=== PATIENT | female | born 1965 | race Caucasian/White ===

== ENCOUNTER 2016-09-03 06:05 | Inpatient (IN) | payer OTHER, MEDICAID ==
[2016-09-01 09:23] LABS: Basophils # (auto) 0 uL; Basophils % (auto) 0.2 % (0.0-2.0); Eosinophils # (auto) 0.1 uL; Eosinophils % (auto) 1.8 % (0.0-7.0); Hemoglobin 13.7 g/dL (12.2-16.2); Lymphocytes # (auto) 1.4 uL; Lymphocytes % (auto) 17.1 % (10.0-50.0); Mean Corpuscular Hemoglobin 28.8 pg (28.0-32.0); Mean Corpuscular Hgb Conc. 32.7 g/dL (32.0-36.0); Mean Platelet Volume 7.4 fL (7.4-10.4); Monocytes # (auto) 0.4 uL; Monocytes % (auto) 5.2 % (0.0-12.0); Neutrophils # (auto) 6.1 uL; Neutrophils % (auto) 75.7 % (37.0-80.0); Platelet Count (auto) 472 10^3/uL (140-450); Red Cell Distribution Width 14.4 % (11.6-16.0)
[2016-09-01 09:31] LABS: Urine Bilirubin Negative (Negative); Urine Blood Negative /uL (Negative); Urine Color Yellow (Yellow); Urine Glucose Normal (Normal); Urine Ketone Negative (Negative); Urine Mucus FEW (None Seen); Urine Nitrite Negative (Negative); Urine RBC 1 /hpf (0 - 4); Urine Squamous Epithelial Cell FEW /hpf (<5); Urine Urobilinogen Normal (Negative); Urine pH 5.5 (5.0-8.0)
[2016-09-01 09:38] LABS: Albumin 3.3 g/dL (3.4-5.0); BUN/Creatinine Ratio 14.1; Bilirubin, Total 0.3 mg/dL (0.2-1.0); Calcium 8.9 mg/dL (8.5-10.1); Potassium 4.3 mmol/L (3.5-5.1); Total Protein 8.1 g/dL (6.4-8.2)
[2016-09-01 09:54] LABS: INR 0.94 (0.9-1.15); Partial Thromboplastin Time 27.1 sec (22.64-33.71); Prothrombin Time 10.1 sec (9.37-12.3)
[~2016-09-03] VITALS: Ht 152.4 cm; Wt 80.4 kg
[~2016-09-03 06:05] MED LIST: HYDR200T PO; IBU800T PO; LISI10TA6 PO; OMEP20CA5 PO; POTA20TA53 PO; PRE1T PO
[2016-09-03] MEDS ORDERED: NEOMYCIN-POLYM-HC 1% OTIC(EAR) SOLN 10ML ONE (06:55)
[2016-09-03] MEDS ORDERED: ceFAZolin 1GM/50ML D5W 50 ML IV ONE (07:13)
[2016-09-03] MEDS ORDERED: GLYCOPYRROLATE 0.2 MG/ML 1ML VIAL IV ONE (07:29)
[2016-09-03] MEDS ORDERED: NEOSTIGMINE 1 MG/ML INJ (10mg/10ML VIAL) IV ONE (07:29)
[2016-09-03] MEDS ORDERED: ROCURONIUM 10MG/ML 10ML VIAL IV ONE (07:30)
[2016-09-03] MEDS ORDERED: MIDAZOLAM HCL 1MG/1ML-2 ML VIAL ONE (07:30)
[2016-09-03] MEDS ORDERED: PROPOFOL 10 MG/ML 20 ML IV ONE (07:30)
[2016-09-03] MEDS ORDERED: fentaNYL CITRATE 100 MCG/2 ML VL ONE ×2 (07:30→07:31)
[2016-09-03] MEDS ORDERED: ONDANSETRON HCL 4 MG/2 ML VIAL IV ONE (09:30)
[2016-09-03] MEDS ORDERED: hydrALAZINE HCL 20 MG/ML VL IV PRN (09:30)
[2016-09-03] MEDS ORDERED: HYDROmorphone HCL 2 MG/ML VL IV PRN (09:30)
[2016-09-03] MEDS ORDERED: ePHEDrine SULFATE 50 MG/ML AMP IV PRN (09:30)
[2016-09-03] MEDS: SODIUM CHLORIDE 0.9% 1,000 ML IV SCH (10:15)
[2016-09-03] MEDS ORDERED: ONDANSETRON HCL 4 MG/2 ML VIAL IV PRN (10:15)
[2016-09-03 11:17] VITALS: BP 123/68
[2016-09-03 13:00] VITALS: BP 123/72
[2016-09-03] MEDS: ceFAZolin 1GM/50ML D5W 50 ML IV SCH ×2 (13:21→21:22)
[2016-09-03] MEDS: MORPHINE SULF INJ 2 MG/ML SYRINGE 1ML IV PRN (16:14)
[2016-09-03 17:00] VITALS: BP 139/88
[2016-09-03] MEDS: HYDROcodone-ACET 5/325MG TAB PO PRN (19:39)
[2016-09-03 20:08] VITALS: BP 139/58
[2016-09-03] MEDS: FAMOTIDINE 20 MG TAB PO SCH (21:21)
[2016-09-03 21:50] VITALS: BP 107/50
[2016-09-04] MEDS: SODIUM CHLORIDE 0.9% 1,000 ML IV SCH ×2 (03:23→12:55)
[2016-09-04] MEDS: MORPHINE SULF INJ 2 MG/ML SYRINGE 1ML IV PRN ×2 (04:34→11:46)
[2016-09-04 04:38] VITALS: BP 128/60
[2016-09-04] MEDS: ceFAZolin 1GM/50ML D5W 50 ML IV SCH (05:14)
[2016-09-04 06:39] LABS: Basophils # (auto) 0 uL; Basophils % (auto) 0.3 % (0.0-2.0); Eosinophils # (auto) 0.1 uL; Eosinophils % (auto) 2.3 % (0.0-7.0); Hematocrit 38.4 % (36.0-46.0); Hemoglobin 12.6 g/dL (12.2-16.2); Lymphocytes % (auto) 17.3 % (10.0-50.0); Mean Corpuscular Hemoglobin 28.6 pg (28.0-32.0); Mean Corpuscular Hgb Conc. 32.7 g/dL (32.0-36.0); Mean Corpuscular Volume 87.3 fL (80.0-100.0); Mean Platelet Volume 7.2 fL (7.4-10.4); Monocytes # (auto) 0.4 uL; Neutrophils # (auto) 4.2 uL; Neutrophils % (auto) 73.1 % (37.0-80.0); Platelet Count (auto) 413 10^3/uL (140-450); Red Cell Distribution Width 13.9 % (11.6-16.0); White Blood Cell 5.7 10^3/uL (4.4-10.8)
[2016-09-04] MEDS: HYDROcodone-ACET 5/325MG TAB PO PRN ×2 (06:43→13:00)
[2016-09-04 07:17] LABS: BUN/Creatinine Ratio 11.6; Calcium 8.5 mg/dL (8.5-10.1)
[2016-09-04 08:00] VITALS: BP 134/80
[2016-09-04 08:12] VITALS: BP 134/80
[2016-09-04] MEDS: FAMOTIDINE 20 MG TAB PO SCH (09:34)
[2016-09-04] MEDS ORDERED: predniSONE 1 MG TAB PO SCH (10:00)
[2016-09-04] MEDS ORDERED: HYDROXYCHLOROQUINE SULFATE 200 MG TAB PO SCH (10:00)
[2016-09-04 13:03] VITALS: BP 147/76
== END 2016-09-04 13:35 | disposition home or self-care (01) | DRG 989 ==
LOC: SUR 06:05 → CENTRAL 06:06
PROVIDERS: ADMIT Otolaryngology; ATTEND Internal Medicine
PROC: 0CB90ZZ Excision of Left Parotid Gland, Open Approach (ICD-10-PCS; principal; 2016-09-03 07:29)
DX: D49.0 Neoplasm of unspecified behavior of digestive system (principal); K21.9 Gastro-esophageal reflux disease without esophagitis; I10 Essential (primary) hypertension; Z87.891 Personal history of nicotine dependence; M32.9 Systemic lupus erythematosus, unspecified; Z88.8 Allergy status to other drugs, medicaments and biological substances
CPT/HCPCS: 36415; 80048; 80053; 81001; 85025; 85610; 85730; J0690; J2250; J2405; J2704

== ENCOUNTER → 2017-03-01 | Outpatient (CLI) | payer OTHER, MEDICAID ==
[~2017-03-01] MED LIST changes: -IBU800T PO; +IBUP800T24 PO; -OMEP20CA5 PO; +OMEP20CA74 PO
[2017-03-01 08:35] LABS: Basophils # (auto) 0 uL; Basophils % (auto) 0.7 % (0.0-2.0); Eosinophils # (auto) 0.2 uL; Eosinophils % (auto) 2.9 % (0.0-7.0); Hematocrit 37.6 % (36.0-46.0); Hemoglobin 12.7 g/dL (12.2-16.2); Lymphocytes # (auto) 1.1 uL; Lymphocytes % (auto) 17.5 % (10.0-50.0); Mean Corpuscular Hemoglobin 30.1 pg (28.0-32.0); Mean Corpuscular Hgb Conc. 33.8 g/dL (32.0-36.0); Mean Corpuscular Volume 89.1 fL (80.0-100.0); Mean Platelet Volume 6.9 fL (6.9-10.8); Monocytes # (auto) 0.4 uL; Monocytes % (auto) 5.8 % (0.0-12.0); Neutrophils # (auto) 4.5 uL; Neutrophils % (auto) 73.1 % (37.0-80.0); Nucleated Red Blood Cells % 0.1 %; Platelet Count (auto) 405 10^3/uL (140-450); Red Cell Distribution Width 13.7 % (11.8-14.3); White Blood Cell 6.2 10^3/uL (4.4-10.8)
[2017-03-01 09:07] LABS: Albumin 3.1 g/dL (3.4-5.0); BUN/Creatinine Ratio 22.5; Bilirubin, Total 0.2 mg/dL (0.2-1.0); Calcium 8.7 mg/dL (8.5-10.1); Potassium 4.4 mmol/L (3.5-5.1); Total Protein 7.8 g/dL (6.4-8.2)
== END | disposition home or self-care (01) ==
LOC: LAB 07:56
PROVIDERS: ATTEND Internal Medicine
DX: I10 Essential (primary) hypertension (principal)
CPT/HCPCS: 36415; 80053; 80061; 82306; 84439; 84443; 85025

== ENCOUNTER → 2017-03-08 | Outpatient (CLI) | payer OTHER, MEDICAID ==
[2017-03-09 05:07] LABS: Thyroid Peroxidase (TPO) Ab 14 IU/mL (0-34)
== END | disposition home or self-care (01) ==
LOC: LAB 08:35
DX: I10 Essential (primary) hypertension (principal); K21.0 Gastro-esophageal reflux disease with esophagitis; M32.10 Systemic lupus erythematosus, organ or system involvement unspecified
CPT/HCPCS: 86225; 86235

== ENCOUNTER 2017-07-15 16:09 | Emergency (ER) | payer OTHER, MEDICAID ==
[~2017-07-15] VITALS: Ht 152.4 cm; Wt 73.5 kg
[2017-07-15 16:18] VITALS: BP 136/111
[2017-07-15 17:55] LABS: Hemoglobin 12.5 g/dL (12.2-16.2)
[2017-07-15 17:58] LABS: Hematocrit 38.2 % (36.0-46.0); Mean Corpuscular Hemoglobin 28.9 pg (28.0-32.0); Mean Corpuscular Hgb Conc. 32.9 g/dL (32.0-36.0); Mean Corpuscular Volume 88.1 fL (80.0-100.0); Platelet Count (auto) 364 10^3/uL (140-450); Red Blood Cells 4.33 10^6/uL (4.0-5.20); Red Cell Distribution Width 13.8 % (11.8-14.3)
[2017-07-15 18:04] LABS: Basophils % (manual) 0 (0.0-2.0); Blast Cells 0; Eosinophils % (manual) 0 (0-7); Metamyelocytes % 0; Myelocytes % 0; Promyelocytes % 0; Reactive Lymphocytes 0
[2017-07-15 18:12] LABS: Alanine Aminotransferase 18 U/L (13-56); Albumin 2.9 g/dL (3.4-5.0); Alkaline Phosphatase 80 U/L (45-117); Anion Gap 9 (5-15); Aspartate Aminotransferase 18 U/L (15-37); BUN/Creatinine Ratio 19.2; Blood Urea Nitrogen 28 mg/dL (7-18); Calcium 8.4 mg/dL (8.5-10.1); Carbon Dioxide 23 mmol/L (21-32); Chloride 99 mmol/L (98-107); GFR African American 48 mL/min; GFR Non-African American 40 mL/min; Glucose 75 mg/dL (74-106); Magnesium 1.7 mg/dL (1.6-2.6); Potassium 4.2 mmol/L (3.5-5.1); Sodium 131 mmol/L (136-145); Total Protein 7.9 g/dL (6.4-8.2)
[2017-07-15 19:35] LABS: Band Neutrophils % (manual) 10; Lymphocytes % (manual) 2 (10.0-50.0); Monocytes % (manual) 3 (0-12)
== END 2017-07-15 22:34 | disposition left against medical advice (07) ==
LOC: ER 16:16
DX: R07.89 Other chest pain (principal); R05 Cough; Z53.21 Procedure and treatment not carried out due to patient leaving prior to being seen by health care provider
CPT/HCPCS: 36415; 80053; 83735; 84484; 85007; 85027; 93005

== ENCOUNTER 2017-07-16 09:21 | Inpatient (IN) | payer OTHER, MEDICAID ==
[~2017-07-16] VITALS: Ht 152.4 cm; Wt 78.6 kg
[2017-07-16] MEDS ORDERED: SODIUM CHLORIDE 0.9% 1,000 ML IV ONE ×2 (09:51→12:15)
[2017-07-16] MEDS ORDERED: ALBUTEROL SULF 2.5 MG/0.5ML(0.5%) NEB SOLN HHN ONE (10:00)
[2017-07-16] MEDS ORDERED: methylPREDNISolone SOD SUCC 125 MG/2 ML VL IV ONE (10:00)
[2017-07-16] MEDS ORDERED: IPRATROPIUM BROM 0.5 MG/2.5ML INH SOL HHN ONE (10:00)
[2017-07-16] MEDS ORDERED: cefTRIAXone 1GM/10ml IVPUSH 10 ML IV ONE (10:00)
[2017-07-16 11:10] LABS: Hematocrit 35.8 % (36.0-46.0); Hemoglobin 11.9 g/dL (12.2-16.2); Mean Corpuscular Hemoglobin 28.9 pg (28.0-32.0); Mean Corpuscular Hgb Conc. 33.2 g/dL (32.0-36.0); Mean Corpuscular Volume 87.2 fL (80.0-100.0); Platelet Count (auto) 301 10^3/uL (140-450); Red Blood Cells 4.11 10^6/uL (4.0-5.20); White Blood Cell 22.7 10^3/uL (4.4-10.8)
[2017-07-16 11:14] LABS: Basophils % (manual) 0 (0.0-2.0); Eosinophils % (manual) 0 (0-7); Metamyelocytes % 0
[2017-07-16 11:15] LABS: Blast Cells 0; Myelocytes % 0; Promyelocytes % 0; Reactive Lymphocytes 0
[2017-07-16] MEDS ORDERED: LACTULOSE 20Gm/30ML SOLN PO PRN (11:30)
[2017-07-16] MEDS ORDERED: HYDROcodone-ACET 5/325MG TAB PO PRN (11:30)
[2017-07-16] MEDS ORDERED: NITROGLYCERIN 0.4 MG SL TAB SL PRN (11:30)
[2017-07-16] MEDS ORDERED: ALBUTEROL SULF 2.5 MG/0.5ML(0.5%) NEB SOLN NEB PRN (11:30)
[2017-07-16] MEDS ORDERED: methylPREDNISolone SOD SUCC 40 MG/ML VL IV ONE (11:30)
[2017-07-16] MEDS ORDERED: MORPHINE SULFATE 4 MG/ML SYR/VIAL IV PRN ×2 (11:30)
[2017-07-16] MEDS ORDERED: PIPERACILLIN-TAZOB 3.375GM 50 ML IV ONE (11:30)
[2017-07-16] MEDS ORDERED: LORazepam 0.5 MG TAB PO PRN (11:30)
[2017-07-16] MEDS ORDERED: OSELTAMIVIR 75 MG CAP PO ONE (11:30)
[2017-07-16] MEDS ORDERED: ACETAMINOPHEN 500 MG TAB PO PRN (11:30)
[2017-07-16] MEDS ORDERED: TEMAZEPAM 15 MG CAP PO PRN (11:30)
[2017-07-16] MEDS ORDERED: PROMETHAZINE HCL 25 MG/ML 1ML IV PRN (11:30)
[2017-07-16 11:32] LABS: Band Neutrophils % (manual) 20; Lymphocytes % (manual) 5 (10.0-50.0); Monocytes % (manual) 3 (0-12)
[2017-07-16] MEDS: SODIUM CHLORIDE 0.9% 1,000 ML IV SCH ×2 (11:58→22:08)
[2017-07-16] MEDS: PIPERACILLIN-TAZOB 3.375GM 50 ML IV SCH ×2 (11:58→17:48)
[2017-07-16] MEDS: ENOXAPARIN SOD 40 MG/0.4 ML SYRINGE SC SCH (11:59)
[2017-07-16 12:33] LABS: Albumin 2.6 g/dL (3.4-5.0); BUN/Creatinine Ratio 21.2; Bilirubin, Total 0.7 mg/dL (0.2-1.0); Calcium 8.1 mg/dL (8.5-10.1); Potassium 4.4 mmol/L (3.5-5.1); Total Protein 7.6 g/dL (6.4-8.2)
[2017-07-16] MEDS: AZITHROMYCIN 500MG/ 250ML 250 ML IV SCH (14:08)
[2017-07-16] MEDS: metroNIDAZOLE 500 MG TAB PO SCH ×2 (14:40→22:08)
[2017-07-16] MEDS: LINEZOLID 600MG/300ML 300 ML IV SCH (17:13)
[2017-07-16] MEDS: IPRATROPIUM BROM 0.5 MG/2.5ML INH SOL NEB SCH (19:45)
[2017-07-16] MEDS: ALBUTEROL SULF 2.5 MG/0.5ML(0.5%) NEB SOLN NEB SCH (19:45)
[2017-07-16] MEDS ORDERED: OSELTAMIVIR 75 MG CAP PO SCH (22:00)
[2017-07-16] MEDS ORDERED: HYDROXYCHLOROQUINE SULFATE 200 MG TAB PO SCH (22:00)
[2017-07-16 22:32] VITALS: BP 95/59
[2017-07-17] MEDS: PIPERACILLIN-TAZOB 3.375GM 50 ML IV SCH ×5 (00:11→23:45)
[2017-07-17] MEDS: methylPREDNISolone SOD SUCC 40 MG/ML VL IV SCH ×3 (00:11→23:44)
[2017-07-17] MEDS: ALBUTEROL SULF 2.5 MG/0.5ML(0.5%) NEB SOLN NEB SCH ×4 (00:45→17:59)
[2017-07-17] MEDS: IPRATROPIUM BROM 0.5 MG/2.5ML INH SOL NEB SCH ×4 (00:45→17:59)
[2017-07-17] MEDS: LINEZOLID 600MG/300ML 300 ML IV SCH (04:00)
[2017-07-17] MEDS: metroNIDAZOLE 500 MG TAB PO SCH ×2 (06:00→15:30)
[2017-07-17 07:13] LABS: Hematocrit 34.1 % (36.0-46.0); Hemoglobin 11.5 g/dL (12.2-16.2); Mean Corpuscular Hemoglobin 29.4 pg (28.0-32.0); Mean Corpuscular Hgb Conc. 33.7 g/dL (32.0-36.0); Mean Corpuscular Volume 87.2 fL (80.0-100.0); Platelet Count (auto) 294 10^3/uL (140-450); Red Blood Cells 3.91 10^6/uL (4.0-5.20); Red Cell Distribution Width 13.5 % (11.8-14.3); White Blood Cell 22.3 10^3/uL (4.4-10.8)
[2017-07-17 07:18] LABS: Basophils % (manual) 0 (0.0-2.0); Blast Cells 0; Eosinophils % (manual) 0 (0-7); Metamyelocytes % 0; Monocytes % (manual) 0 (0-12); Myelocytes % 0; Promyelocytes % 0; Reactive Lymphocytes 0
[2017-07-17 07:37] LABS: Albumin 2.3 g/dL (3.4-5.0); BUN/Creatinine Ratio 29.3; Calcium 8.2 mg/dL (8.5-10.1); Potassium 3.2 mmol/L (3.5-5.1)
[2017-07-17 07:39] LABS: Bilirubin, Total 0.3 mg/dL (0.2-1.0); Total Protein 6.8 g/dL (6.4-8.2)
[2017-07-17 08:16] LABS: Band Neutrophils % (manual) 3; Lymphocytes % (manual) 3 (10.0-50.0)
[2017-07-17] MEDS: SODIUM CHLORIDE 0.9% 1,000 ML IV SCH ×2 (08:18→15:22)
[2017-07-17] MEDS: AZITHROMYCIN 500MG/ 250ML 250 ML IV SCH (09:58)
[2017-07-17] MEDS: ENOXAPARIN SOD 40 MG/0.4 ML SYRINGE SC SCH (09:59)
[2017-07-17] MEDS: PANTOPRAZOLE 40 MG TAB PO SCH (09:59)
[2017-07-17] MEDS ORDERED: HYDROXYCHLOROQUINE SULFATE 200 MG TAB PO SCH (10:00)
[2017-07-17] MEDS: POTASSIUM CHL 20 Meq TABLET PO SCH (10:02)
[2017-07-17 13:00] VITALS: BP 93/53
[2017-07-17] MEDS ORDERED: POTASSIUM CHL 20MEQ/100ML 100 ML IV ONE (15:45)
[2017-07-17 16:30] VITALS: BP 112/61
[2017-07-17] MEDS ORDERED: POTASSIUM CHL 20 Meq TABLET PO ONE (17:30)
[2017-07-17 20:07] VITALS: BP 119/47
[2017-07-17] MEDS: HYDROXYCHLOROQUINE SULFATE 200 MG TAB PO SCH (22:12)
[2017-07-18] VITALS: BP 112/70
[2017-07-18] MEDS: ALBUTEROL SULF 2.5 MG/0.5ML(0.5%) NEB SOLN NEB SCH ×4 (00:36→18:35)
[2017-07-18] MEDS: IPRATROPIUM BROM 0.5 MG/2.5ML INH SOL NEB SCH ×4 (00:36→18:35)
[2017-07-18] MEDS: PIPERACILLIN-TAZOB 3.375GM 50 ML IV SCH ×4 (06:06→23:45)
[2017-07-18 08:09] LABS: Hematocrit 32.7 % (36.0-46.0); Hemoglobin 10.6 g/dL (12.2-16.2); Mean Corpuscular Hemoglobin 28.7 pg (28.0-32.0); Mean Corpuscular Hgb Conc. 32.5 g/dL (32.0-36.0); Mean Corpuscular Volume 88.3 fL (80.0-100.0); Platelet Count (auto) 296 10^3/uL (140-450); Red Cell Distribution Width 13.9 % (11.8-14.3); White Blood Cell 18.7 10^3/uL (4.4-10.8)
[2017-07-18 08:11] LABS: Band Neutrophils % (manual) 0; Basophils % (manual) 0 (0.0-2.0); Blast Cells 0; Eosinophils % (manual) 0 (0-7); Metamyelocytes % 0; Myelocytes % 0; Promyelocytes % 0; Reactive Lymphocytes 0
[2017-07-18 08:25] LABS: Potassium 4.4 mmol/L (3.5-5.1)
[2017-07-18 08:31] LABS: BUN/Creatinine Ratio 27.3
[2017-07-18 09:04] LABS: Lymphocytes % (manual) 4 (10.0-50.0); Monocytes % (manual) 4 (0-12)
[2017-07-18] MEDS: HYDROXYCHLOROQUINE SULFATE 200 MG TAB PO SCH ×2 (09:54→22:26)
[2017-07-18] MEDS: PANTOPRAZOLE 40 MG TAB PO SCH (09:54)
[2017-07-18] MEDS: POTASSIUM CHL 20 Meq TABLET PO SCH (09:54)
[2017-07-18] MEDS: AZITHROMYCIN 500MG/ 250ML 250 ML IV SCH (09:54)
[2017-07-18] MEDS: ENOXAPARIN SOD 40 MG/0.4 ML SYRINGE SC SCH (09:55)
[2017-07-18 11:52] VITALS: BP 106/70
[2017-07-18] MEDS: methylPREDNISolone SOD SUCC 40 MG/ML VL IV SCH ×2 (12:58→23:45)
[2017-07-18 17:00] VITALS: BP 140/67
[2017-07-18 22:00] VITALS: BP 100/56
[2017-07-19] MEDS: IPRATROPIUM BROM 0.5 MG/2.5ML INH SOL NEB SCH ×3 (01:06→11:43)
[2017-07-19] MEDS: ALBUTEROL SULF 2.5 MG/0.5ML(0.5%) NEB SOLN NEB SCH ×3 (01:06→11:43)
[2017-07-19 05:00] VITALS: BP 118/64
[2017-07-19] MEDS: PIPERACILLIN-TAZOB 3.375GM 50 ML IV SCH ×2 (05:49→12:03)
[2017-07-19 08:55] VITALS: BP 123/69
[2017-07-19] MEDS: HYDROXYCHLOROQUINE SULFATE 200 MG TAB PO SCH (09:42)
[2017-07-19] MEDS: PANTOPRAZOLE 40 MG TAB PO SCH (09:42)
[2017-07-19] MEDS: AZITHROMYCIN 500MG/ 250ML 250 ML IV SCH (09:42)
[2017-07-19] MEDS: POTASSIUM CHL 20 Meq TABLET PO SCH (09:42)
[2017-07-19] MEDS: ENOXAPARIN SOD 40 MG/0.4 ML SYRINGE SC SCH (09:42)
[2017-07-19] MEDS: methylPREDNISolone SOD SUCC 40 MG/ML VL IV SCH (12:03)
[2017-07-19] MEDS ORDERED: AZIT500T PO (12:44)
[2017-07-19] MEDS ORDERED: CEFD300C2 PO (12:44)
[2017-07-19] MEDS ORDERED: METH4PAK PO (12:44)
[2017-07-19] MEDS ORDERED: ALBUAER3 IN (12:44)
[2017-07-19 13:04] VITALS: BP 129/70
== END 2017-07-19 15:35 | disposition home or self-care (01) | DRG 871 ==
LOC: ER 09:21 → TELE 09:22 → DOU IN ICU 07-17 12:40 → TELE-EAST 07-18 16:03
PROVIDERS: ADMIT Internal Medicine; ATTEND Internal Medicine
DX: A41.9 Sepsis, unspecified organism (principal); N17.0 Acute kidney failure with tubular necrosis; J84.9 Interstitial pulmonary disease, unspecified; J44.1 Chronic obstructive pulmonary disease with (acute) exacerbation; E44.0 Moderate protein-calorie malnutrition; M32.9 Systemic lupus erythematosus, unspecified; J45.901 Unspecified asthma with (acute) exacerbation; K59.00 Constipation, unspecified; F17.210 Nicotine dependence, cigarettes, uncomplicated; I10 Essential (primary) hypertension; T38.0X5A Adverse effect of glucocorticoids and synthetic analogues, initial encounter; F41.9 Anxiety disorder, unspecified; G47.00 Insomnia, unspecified; R19.7 Diarrhea, unspecified; Z68.33 Body mass index [BMI] 33.0-33.9, adult; Z90.49 Acquired absence of other specified parts of digestive tract; Z90.89 Acquired absence of other organs; Z98.51 Tubal ligation status; Z80.8 Family history of malignant neoplasm of other organs or systems; Z79.899 Other long term (current) drug therapy
CPT/HCPCS: 36415; 71045; 71046; 80048; 80053; 83605; 84132; 85007; 85027; 87040; 87081; 87086; 87804; 94640; 94644; 96361; 96374; 96375; 99291; J2543